=== PATIENT | female | born 1980 | race Two or more races ===

== ENCOUNTER 2018-12-15 00:29 | Inpatient (IN) | payer SELFPAY ==
[~2018-12-15] VITALS: Ht 160 cm; Wt 75.8 kg
[~2018-12-15 00:29] MED LIST: ACET-704 PO; HYDR-2761 PO; HYDR-3164 PO; NITR100C PO; NITR100C62 PO; ONDA4TAB10 SL; PHEN-444 PO; SULF1TAB24 PO; TAMS0.4C97 PO
[2018-12-15 01:16] LABS: BILIRUBIN,URINE NEGATIVE (NEG); CLARITY,URINE CLEAR; COLOR,URINE YELLOW; NITRITE,URINE NEGATIVE (NEG); PH,URINE 5.5; PROTEIN,URINE 100 mg/dL (NEG-TRACE)
[2018-12-15 01:23] LABS: BACTERIA,URINE MODERATE /HPF (0-FEW); RBC,URINE 20-40 /HPF (0-2); SQUAMOUS EPITHELIAL CELL,UR FEW /LPF; WBC,URINE TNTC /HPF (0-4)
[2018-12-15 01:24] LABS: AMORPHOUS SEDIMENT,UR PRESENT /HPF
[2018-12-15 01:29] LABS: BASO % 0 % (0-3); EOS % 0 % (0-3); HEMATOCRIT 25.2 % (36.0-47.0); HEMOGLOBIN 8.1 g/dL (12.0-15.5); LYMPH # 0.8 x10^3/uL (1.0-4.8); LYMPH % 8 % (24-48); MEAN CORPUSCULAR HEMOGLOBIN 29 pg (25-35); MEAN CORPUSCULAR HGB CONC 32 g/dL (31-37); MEAN CORPUSCULAR VOLUME 90 fL (79-100); MONO # 0.4 x10^3/uL (0.0-1.1); MONO % 4 % (0-9); NEUT # 8.8 x10^3uL (1.8-7.7); NEUT % 87 % (31-73); PLATELET COUNT 268 x10^3/uL (140-400); RED BLOOD COUNT 2.79 x10^6/uL (3.50-5.40); RED CELL DISTRIBUTION WIDTH 17.1 % (11.5-14.5); WHITE BLOOD COUNT 10.2 x10^3/uL (4.0-11.0)
[2018-12-15] MEDS ORDERED: IV NORMAL SALINE 1000ML BAG 1,000 ML IV SCH (01:30)
[2018-12-15] MEDS ORDERED: MORPHINE SULFATE 4 MG/ML VIAL. IV ONE (01:30)
[2018-12-15] MEDS ORDERED: PROCHLORPERAZINE 10 MG/2 ML VIAL. IV ONE (01:30)
[2018-12-15] MEDS ORDERED: PANTOPRAZOLE IV PUSH 40 MG VIAL. IVP ONE (01:30)
[2018-12-15 01:36] LABS: CREATININE 0.6 mg/dL (0.6-1.0); GFR 113.1; POTASSIUM 4.2 mmol/L (3.5-5.1)
[2018-12-15 01:37] LABS: PROTHROMBIN TIME PATIENT 12.5 SEC (11.7-14.0)
--- NOTE | 2018-12-15 01:37 | PHYS DOC ---
Past Medical History Past Medical History: Kidney Stone, Unknown Additional Past Medical Histor: Gastric ulcers Past Surgical History: , Other Additional Past Surgical Histo: renal stent, surgical repair of gastric ulcers Alcohol Use: None Drug Use: None Adult General Chief Complaint Chief Complaint: ABDOMINAL PAIN HPI HPI Patient is a 38 year old female who presents with upper abdominal pain going into her back. Patient is post delivery of twins 02 December 2018. Her hospital course at was complicated by vaginal bleeding and needed to have a vaginal Stacie for Reeds not left in for 24 hours. Patient also has a history of stomach ulcers. Patient has had some nausea, no vomiting, unable to describe the pain in her upper abdomen radiating into her back. Not like her stomach ulcers though. No fever. No diarrhea. Nothing seems to make the discomfort better or worse[] Review of Systems Review of Systems Constitutional: Denies fever or chills [] Eyes: Denies change in visual acuity, redness, or eye pain [] HENT: Denies nasal congestion or sore throat [] Respiratory: Denies cough or shortness of breath [] Cardiovascular: No chest pain or palpitations[] GI: See history of present illness[] : Denies dysuria or hematuria [] Musculoskeletal: Denies back pain or joint pain [] Integument: Denies rash or skin lesions [] Neurologic: Denies headache, focal weakness or sensory changes [] Endocrine: Denies polyuria or polydipsia [] All other systems were reviewed and found to be within normal limits, except as documented in this note. Current Medications Current Medications Current Medications Medications (Trade) Dose Ordered Sig/Fina Start Time Stop Time Status Last Admin Dose Admin Ceftriaxone Sodium (Rocephin) 1 gm 1X ONCE 12/15/18 03:30 12/15/18 03:31 DC 12/15/18 03:50 1 GM Info (CONTRAST GIVEN -- Rx MONITORING) 1 each PRN DAILY PRN 12/15/18 03:45 12/17/18 03:44 Iohexol (Omnipaque 300 Mg/ml) 75 ml 1X ONCE 12/15/18 02:00 12/15/18 02:01 DC 12/15/18 02:45 75 ML Iohexol (Omnipaque 350 Mg/ml) 90 ml 1X ONCE 12/15/18 03:45 12/15/18 03:46 DC 12/15/18 03:49 90 ML Morphine Sulfate (Morphine Sulfate) 4 mg 1X ONCE 12/15/18 01:30 12/15/18 01:31 DC 12/15/18 01:34 4 MG Pantoprazole Sodium (PROTONIX VIAL for IV PUSH) 40 mg 1X ONCE 12/15/18 01:30 12/15/18 01:31 DC 12/15/18 01:37 40 MG Prochlorperazine Edisylate (Compazine) 5 mg 1X ONCE 12/15/18 01:30 12/15/18 01:31 DC 12/15/18 01:32 5 MG Sodium Chloride 1,000 ml @ 1,000 mls/hr Q1H 12/15/18 01:30 12/15/18 02:29 DC 12/15/18 01:32 1,000 MLS/HR Allergies Allergies Allergies Coded Allergies Type Severity Reaction Last Updated Verified No Known Drug Allergies 01/06/16 No Physical Exam Physical Exam Constitutional: Well developed, well nourished, no acute distress, non-toxic appearance. [] HENT: Normocephalic, atraumatic, bilateral external ears normal, oropharynx moist, no oral exudates, nose normal. [] Eyes: PERRLA, EOMI, conjunctiva normal, no discharge. [] Neck: Normal range of motion, no tenderness, supple, no stridor. [] Cardiovascular:Heart rate regular rhythm, no murmur [] Lungs & Thorax: Bilateral breath sounds clear to auscultation [] Abdomen: Bowel sounds normal, soft, epigastric tenderness is present, no rebound , no guarding, no rigidity, no masses, no pulsatile masses. [] Skin: Warm, dry, no erythema, no rash. [] Back: No tenderness, mild left CVA tenderness, negative chandelier's sign[] Extremities: No tenderness, no cyanosis, no clubbing, ROM intact, no edema. [] Neurologic: Alert and oriented X 3, normal motor function, normal sensory function, no focal deficits noted. [] Psychologic: Affect normal, judgement normal, mood normal. [] Current Patient Data Vital Signs Vital Signs Date Time Temp Pulse Resp B/P (MAP) Pulse Ox O2 Delivery O2 Flow Rate FiO2 12/15/18 01:34 17 98 Room Air 12/15/18 01:00 98.1 101 160/81 (107) 98.1 Lab Values Laboratory Tests Test 12/15/18 00:35 12/15/18 01:19 Urine Collection Type Unknown Urine Color Yellow Urine Clarity Clear Urine pH 5.5 Urine Specific [place] >=1.030 Urine Protein 100 mg/dL (NEG-TRACE) Urine Glucose (UA) Negative mg/dL (NEG) Urine Ketones (Stick) Negative mg/dL (NEG) Urine Blood Large (NEG) Urine Nitrite Negative (NEG) Urine Bilirubin Negative (NEG) Urine Urobilinogen Dipstick 1.0 mg/dL (0.2 mg/dL) Urine Leukocyte Esterase Large (NEG) Urine RBC 20-40 /HPF (0-2) Urine WBC Tntc /HPF (0-4) Urine Squamous Epithelial Cells Few /LPF Urine Amorphous Sediment Present /HPF Urine Bacteria Moderate /HPF (0-FEW) Urine Mucus Mod /LPF White Blood Count 10.2 x10^3/uL (4.0-11.0) Red Blood Count 2.79 x10^6/uL (3.50-5.40) L Hemoglobin 8.1 g/dL (12.0-15.5) L Hematocrit 25.2 % (36.0-47.0) L Mean Corpuscular Volume 90 fL (79-100) Mean Corpuscular Hemoglobin 29 pg (25-35) Mean Corpuscular Hemoglobin Concent 32 g/dL (31-37) Red Cell Distribution Width 17.1 % (11.5-14.5) H Platelet Count 268 x10^3/uL (140-400) Neutrophils (%) (Auto) 87 % (31-73) H Lymphocytes (%) (Auto) 8 % (24-48) L Monocytes (%) (Auto) 4 % (0-9) Eosinophils (%) (Auto) 0 % (0-3) Basophils (%) (Auto) 0 % (0-3) Neutrophils # (Auto) 8.8 x10^3uL (1.8-7.7) H Lymphocytes # (Auto) 0.8 x10^3/uL (1.0-4.8) L Monocytes # (Auto) 0.4 x10^3/uL (0.0-1.1) Eosinophils # (Auto) 0.0 x10^3/uL (0.0-0.7) Basophils # (Auto) 0.0 x10^3/uL (0.0-0.2) Segmented Neutrophils % 87 % (35-66) H Lymphocytes % 10 % (24-48) L Monocytes % 3 % (0-10) Platelet Estimate Adequate (ADEQUATE) Polychromasia Slight Hypochromasia Slight Anisocytosis Slight Tear Drop Cells Occ Prothrombin Time 12.5 SEC (11.7-14.0) Prothrombin Time INR 1.0 (0.8-1.1) D-Dimer (Sunita) 1.64 ug/mlFEU (0.00-0.50) H Sodium Level 141 mmol/L (136-145) Potassium Level 4.2 mmol/L (3.5-5.1) Chloride Level 104 mmol/L (98-107) Carbon Dioxide Level 26 mmol/L (21-32) Anion Gap 11 (6-14) Blood Urea Nitrogen 13 mg/dL (7-20) Creatinine 0.6 mg/dL (0.6-1.0) Estimated GFR (Cockcroft-Gault) 113.1 BUN/Creatinine Ratio 22 (6-20) H Glucose Level 145 mg/dL (70-99) H Calcium Level 9.0 mg/dL (8.5-10.1) Total Bilirubin 0.2 mg/dL (0.2-1.0) Aspartate Amino Transferase (AST) 75 U/L (15-37) H Alanine Aminotransferase (ALT) 40 U/L (14-59) Alkaline Phosphatase 227 U/L (46-116) H Troponin I Quantitative < 0.017 ng/mL (0.000-0.055) Total Protein 6.9 g/dL (6.4-8.2) Albumin 2.5 g/dL (3.4-5.0) L Albumin/Globulin Ratio 0.6 (1.0-1.7) L Lipase 115 U/L (73-393) Laboratory Tests 12/15/18 01:19 Laboratory Tests 12/15/18 01:19 EKG EKG EKG shows a sinus tachycardia at 102 bpm, normal axis, normal QTC at 445 ms, normal intervals, no ST elevations, no previous EKG for comparison. Interpreted by me at 0 200[] Radiology/Procedures Radiology/Procedures CT ABDOMEN/PELVIS WITH CONTRAST. HISTORY: Recent section. Abdominal pain. TECHNIQUE: Computed tomography of the abdomen and pelvis was performed after the intravenous administration of 75 mL Omnipaque 300. COMPARISON: 02/09/2016. FINDINGS: Lung windows through the visualized portions of the bases reveal mild atelectasis. Bone windows reveal no suspicious lesions. A gallstone measures 1.7 cm. The gallbladder is not distended and there is no pericholecystic inflammation. There is no biliary dilatation. The pancreas and adrenal glands are unremarkable. The spleen is mildly enlarged at 14 cm. The liver is also mildly prominent. Multiple right renal calculi measure up to 6 x 4 mm. Right distal ureteral calculus measures 13 x 6 mm. The right ureter is moderately dilated in its midportion, but there is no hydronephrosis. There are no left renal or ureteral calculi. There are postsurgical changes of section within the lower anterior abdominal wall. A low-density region within the left rectus muscle is consistent with a subacute hematoma and measures 2.7 x 1.7 cm. A small intra-abdominal hematoma along the incision measures only 1.3 cm. The endometrial cavity is moderately distended with low-density fluid. Stool throughout the colon is consistent with constipation. The appendix is not inflamed. There is no small bowel obstruction. IMPRESSION: 1. 13 mm right distal ureteral calculus. Moderate right hydroureter without hydronephrosis. 2. Additional right renal calculi measure up to 6 mm. 3. Cholelithiasis without CT evidence of acute cholecystitis. 4. Small fluid collection within the left rectus muscle, most likely a small postprocedural hematoma. 5. The endometrial cavity is moderately distended with fluid. Correlate to exclude endometritis. 6. Findings consistent with constipation. 7. Mild hepatosplenomegaly. CT ANGIOGRAPHY OF THE CHEST WITH AND WITHOUT INTRAVENOUS CONTRAST. HISTORY: Recent surgery, elevated d-dimer, back pain. TECHNIQUE: Computed tomographic angiography of the chest was performed before and after the intravenous administration of 90 mL Omnipaque 350. 3-D maximum intensity projections were also performed. COMPARISON: Today's abdomen/pelvis exam. FINDINGS: Refer to today's abdomen/pelvis study for description of those findings. Bone windows reveal no suspicious lesions. No pulmonary emboli are identified. There is no aortic dissection or aneurysm. There are no pathologically enlarged mediastinal or axillary lymph nodes. There is no pleural or pericardial effusion. The heart is mildly enlarged. The main pulmonary artery measures 3.3 cm. Lung windows reveal mild dependent atelectasis. IMPRESSION: 1. No pulmonary embolism. 2. Enlargement of the main pulmonary artery. Correlate for pulmonary arterial hypertension. Mild cardiomegaly. 3. Refer to the abdomen/pelvis study for additional findings.[] Course & Med Decision Making Course & Med Decision Making Pertinent Labs and Imaging studies reviewed. (See chart for details) ED course and medical decision making: Patient arrived, was placed in bed, in tolerated exam well. Patient was noted to be slightly tachycardic with a heart rate hovering around 100 and given her history IV fluids were administered. Given her history concern was present for cardiomyopathy as well as pancreatitis and other intra-abdominal pathology. Additionally concern was present for pulmonary embolism so a d-dimer was ordered in an attempt to rule that out however that was elevated. Patient had been transported to and from CT for reevaluation the abdomen prior to the return of the d-dimer. Patient was transported back to CT for a CT angiogram of her chest to evaluate for pulmonary embolism. Patient was noted to have a urinary tract infection given the to numerous to count white cells in the urine with relatively few epithelial cells, so she was given IV dose of antibiotics with the plan for additional antibiotics either as an outpatient or inpatient as her care evolved in the emergency department. CT scan showed a 13 mm distal ureteral stone. With this large stone and the urinary tract infection that's noted, patient was admitted for further evaluation and treatment. Patient was doing better after the IV fluids, with her heart rate improving to the 80s.[] Dragon Disclaimer Dragon Disclaimer This electronic medical record was generated, in whole or in part, using a voice recognition dictation system. Departure Departure Impression: Primary Impression: Ureteral stone with hydronephrosis Additional Impression: Urinary tract infection Disposition: ADMITTED INPATIENT Admitting Physician: Jose Fabian Condition: IMPROVED Referrals: NO PCP (PCP) Problem Qualifiers Additional Impression: Urinary tract infection Urinary tract infection type: site unspecified Hematuria presence: with hematuria Qualified Codes: N39.0 - Urinary tract infection, site not specified ; R31.9 - Hematuria, unspecified ORTIZ COHEN DO Dec 15, 2018 01:37
[2018-12-15 01:41] LABS: D-DIMER 1.64 ug/mlFEU (0.00-0.50)
[2018-12-15 01:42] LABS: ALBUMIN 2.5 g/dL (3.4-5.0); ALBUMIN/GLOBULIN RATIO 0.6 (1.0-1.7); TOTAL BILIRUBIN 0.2 mg/dL (0.2-1.0); TOTAL PROTEIN 6.9 g/dL (6.4-8.2)
[2018-12-15 01:52] LABS: % LYMPHS 10 % (24-48); % MONOS 3 % (0-10); % SEGS 87 % (35-66); ANISOCYTOSIS SLIGHT; HYPOCHROMIA SLIGHT; PLT ESTIMATE ADEQUATE (ADEQUATE); POLYCHROMASIA SLIGHT
[2018-12-15 01:53] LABS: TEAR DROP CELLS OCC
[2018-12-15] MEDS ORDERED: IOHEXOL 300 MG/ML 100ML VIAL. IV ONE (02:00)
[2018-12-15] MEDS ORDERED: CONTRAST GIVEN. MC PRN ×2 (02:00→03:45)
[2018-12-15] MEDS ORDERED: cefTRIAXone IV Push 1 GM VIAL. IVP ONE (03:30)
[2018-12-15] MEDS ORDERED: IOHEXOL 350 MG/ML 100 ML VIAL. IV ONE (03:45)
--- NOTE | 2018-12-15 04:19 | RAD ---
EXAM: CT ABDOMEN/PELVIS WITH CONTRAST. HISTORY: Recent section. Abdominal pain. TECHNIQUE: Computed tomography of the abdomen and pelvis was performed after the intravenous administration of 75 mL Omnipaque 300. COMPARISON: 02/09/2016. FINDINGS: Lung windows through the visualized portions of the bases reveal mild atelectasis. Bone windows reveal no suspicious lesions. A gallstone measures 1.7 cm. The gallbladder is not distended and there is no pericholecystic inflammation. There is no biliary dilatation. The pancreas and adrenal glands are unremarkable. The spleen is mildly enlarged at 14 cm. The liver is also mildly prominent. Multiple right renal calculi measure up to 6 x 4 mm. Right distal ureteral calculus measures 13 x 6 mm. The right ureter is moderately dilated in its midportion, but there is no hydronephrosis. There are no left renal or ureteral calculi. There are postsurgical changes of section within the lower anterior abdominal wall. A low-density region within the left rectus muscle is consistent with a subacute hematoma and measures 2.7 x 1.7 cm. A small intra-abdominal hematoma along the incision measures only 1.3 cm. The endometrial cavity is moderately distended with low-density fluid. Stool throughout the colon is consistent with constipation. The appendix is not inflamed. There is no small bowel obstruction. IMPRESSION: 1. 13 mm right distal ureteral calculus. Moderate right hydroureter without hydronephrosis. 2. Additional right renal calculi measure up to 6 mm. 3. Cholelithiasis without CT evidence of acute cholecystitis. 4. Small fluid collection within the left rectus muscle, most likely a small postprocedural hematoma. 5. The endometrial cavity is moderately distended with fluid. Correlate to exclude endometritis. 6. Findings consistent with constipation. 7. Mild hepatosplenomegaly. *One or more of the following individualized dose reduction techniques were utilized for this examination: 1. Automated exposure control. 2. Adjustment of the mA and/or kV according to patient size. 3. Use of iterative reconstruction technique. Electronically signed by: Ernesto Quiroz MD (12/15/2018 4:15 AM) [id number]
--- NOTE | 2018-12-15 04:23 | RAD ---
EXAM: CT ANGIOGRAPHY OF THE CHEST WITH AND WITHOUT INTRAVENOUS CONTRAST. HISTORY: Recent surgery, elevated d-dimer, back pain. TECHNIQUE: Computed tomographic angiography of the chest was performed before and after the intravenous administration of 90 mL Omnipaque 350. 3-D maximum intensity projections were also performed. COMPARISON: Today's abdomen/pelvis exam. FINDINGS: Refer to today's abdomen/pelvis study for description of those findings. Bone windows reveal no suspicious lesions. No pulmonary emboli are identified. There is no aortic dissection or aneurysm. There are no pathologically enlarged mediastinal or axillary lymph nodes. There is no pleural or pericardial effusion. The heart is mildly enlarged. The main pulmonary artery measures 3.3 cm. Lung windows reveal mild dependent atelectasis. IMPRESSION: 1. No pulmonary embolism. 2. Enlargement of the main pulmonary artery. Correlate for pulmonary arterial hypertension. Mild cardiomegaly. 3. Refer to the abdomen/pelvis study for additional findings. *One or more of the following individualized dose reduction techniques were utilized for this examination: 1. Automated exposure control. 2. Adjustment of the mA and/or kV according to patient size. 3. Use of iterative reconstruction technique. Electronically signed by: Ernesto Quiroz MD (12/15/2018 4:18 AM) [id number]
[2018-12-15] MEDS ORDERED: ACETAMINOPHEN 325 MG TABLET. PO PRN (04:45)
[2018-12-15] MEDS ORDERED: ONDANSETRON PF 4 MG/2 ML VIAL. IV PRN (04:45)
[2018-12-15] MEDS ORDERED: MORPHINE SULFATE 4 MG/ML VIAL. IV PRN (04:45)
[2018-12-15 05:45] VITALS: BP 141/93
[2018-12-15 07:00] VITALS: BP 122/69
--- NOTE | 2018-12-15 07:45 | EKG ---
[facility] [address] [place] [address] Test Date: 2018-12-15 Test Time: 01:44:44 Pat Name: BARBER CHAVEZ Department: Room: 572 1 Gender: F [employer] Teacher: : 1980 Requested By: ORTIZ COHEN Order Number: [id number] Reading MD: Nash Bridges Measurements Intervals [place] Rate: 102 P: 34 WI: 138 QRS: 26 QRSD: 82 T: 35 QT: 338 QTc: 444 Interpretive Statements SINUS TACHYCARDIA Electronically Signed On 12-16-2018 10:07:27 LOGISTICS TECH by Nash Bridges
[2018-12-15] MEDS ORDERED: IBUP-1027 PO (07:55)
[2018-12-15] MEDS ORDERED: OXYC1TAB15 PO (07:55)
[2018-12-15] MEDS ORDERED: KETOROLAC 30 MG/ML VIAL. IV PRN (08:00)
--- NOTE | 2018-12-15 10:37 | PDOC2 ---
SYED DAVID APRN 12/15/18 1037: UROLOGY CONSULT Date of Consult Date of Consult DATE: 12/15/18 TIME: 10:26 Identification/Chief Complaint Chief Complaint Distal 13 mm stone Source Source: Caregiver, Chart review, Patient History of Present Illness Reason for Visit: This 38 year old female presented to the ER early this am for severe back pain and so a CT scan was done. It was discovered that she has a 13 mm stone. This is the second time she has had kidney stones. The last time was 3-[address] Matthews worked on her then. She cannot remember exactly what he did. Currently, her pain is well controlled with medication and she is actually feeling quite well this am with 0/10 pain. She also denies fevers, dysuria, and hematuria. She would like to go home if possible since she recently gave to twins on 12/02. Past Medical History Renal/: Other (Kidney stones 4 years ago. ) Social History ALCOHOL: none Drugs: None Lives: with Family Current Problem List Problems: (1) Ureteral stone with hydronephrosis Current Medications Current Medications Current Medications Acetaminophen (Tylenol) 650 mg PRN Q4HRS PRN PO FEVER; Start 12/15/18 at 04:45; Stop 12/16/18 at 04:44 Ceftriaxone Sodium (Rocephin) 1 gm 1X ONCE IVP Last administered on 12/15/18at 03:50; Start 12/15/18 at 03:30; Stop 12/15/18 at 03:31; Status DC Info (CONTRAST GIVEN -- Rx MONITORING) 1 each PRN DAILY PRN MC SEE COMMENTS; Start 12/15/18 at 02:00; Stop 12/17/18 at 01:59 Info (CONTRAST GIVEN -- Rx MONITORING) 1 each PRN DAILY PRN MC SEE COMMENTS; Start 12/15/18 at 03:45; Stop 12/17/18 at 03:44 Iohexol (Omnipaque 300 Mg/ml) 75 ml 1X ONCE IV Last administered on 12/15/18at 02:45; Start 12/15/18 at 02:00; Stop 12/15/18 at 02:01; Status DC Iohexol (Omnipaque 350 Mg/ml) 90 ml 1X ONCE IV Last administered on 12/15/18at 03:49; Start 12/15/18 at 03:45; Stop 12/15/18 at 03:46; Status DC Ketorolac Tromethamine (Toradol 30mg Vial) 30 mg PRN Q6HRS PRN IV MODERATE PAIN ; Start 12/15/18 at 08:00; Stop 12/20/18 at 07:59 Morphine Sulfate (Morphine Sulfate) 4 mg 1X ONCE IV Last administered on at 01:34; Start 12/15/18 at 01:30; Stop 12/15/18 at 01:31; Status DC Morphine Sulfate (Morphine Sulfate) 4 mg PRN Q2HR PRN IV SEVERE PAIN; Start 12/15/18 at 04:45; Stop 12/16/18 at 04:44 Ondansetron HCl (Zofran) 4 mg PRN Q8HRS PRN IV NAUSEA/VOMITING 1ST CHOICE; Start 12/15/18 at 04:45; Stop 12/16/18 at 04:44 Pantoprazole Sodium (PROTONIX VIAL for IV PUSH) 40 mg 1X ONCE IVP Last administered on 12/15/18at 01:37; Start 12/15/18 at 01:30; Stop 12/15/18 at 01:31; Status DC Prochlorperazine Edisylate (Compazine) 5 mg 1X ONCE IV Last administered on 12/15/18at 01:32; Start 12/15/18 at 01:30; Stop 12/15/18 at 01:31; Status DC Sodium Chloride 1,000 ml @ 1,000 mls/hr Q1H IV Last administered on 12/15/18at 01:32; Start 12/15/18 at 01:30; Stop 12/15/18 at 02:29; Status DC Allergies Allergies: Coded Allergies: No Known Drug Allergies (Unverified , 01/06/16) ROS Review Of Systems: CONSTITUTIONAL: No fever or chills EYES: No recent changes SKIN: No rash or itching CARDIOVASCULAR: No chest pain, syncope, palpitations, or edema RESPIRATORY: No SOB or cough GASTROINTESTINAL: No nausea, vomiting or abdominal pain NEUROLOGICAL: No headaches or weakness ENDOCRINE: No cold or heat intolerance GENITOURINARY: No urgency or frequency of urination MUSCULOSKELETAL: No back pain or joint pain LYMPHATICS: No enlarged lymph nodes PSYCHIATRIC: No anxiety or depression Physical Exam Physical Exam: General: Pleasant, no acute distress, well groomed Eyes: conjunctiva anicteric, eyes full range of motion ENT: moist oral mucosa, normal dentition Neck: Trachea midline, no masses Respiratory: unlabored breathing, not using accessory muscles, no crackles or wheezes Cardiovascular: Regular rate and rhythm, no peripheral edema Abdomen: nontender, nondistended, no hepatosplenomegaly, no masses Skin: no rashes or skin lesions on visualized skin Psych: normal mood, affect. Alert and oriented x 3. Vitals VITALS Vital Signs Date Time Temp Pulse Resp B/P (MAP) Pulse Ox O2 Delivery O2 Flow Rate FiO2 12/15/18 07:00 98.3 75 16 122/69 (86) 98 Room Air 98.3 Labs Labs Laboratory Tests Test 12/15/18 00:35 12/15/18 01:19 Urine Collection Type Unknown Urine Color Yellow Urine Clarity Clear Urine pH 5.5 Urine Specific [place] >=1.030 Urine Protein 100 mg/dL (NEG-TRACE) Urine Glucose (UA) Negative mg/dL (NEG) Urine Ketones (Stick) Negative mg/dL (NEG) Urine Blood Large (NEG) Urine Nitrite Negative (NEG) Urine Bilirubin Negative (NEG) Urine Urobilinogen Dipstick 1.0 mg/dL (0.2 mg/dL) Urine Leukocyte Esterase Large (NEG) Urine RBC 20-40 /HPF (0-2) Urine WBC Tntc /HPF (0-4) Urine Squamous Epithelial Cells Few /LPF Urine Amorphous Sediment Present /HPF Urine Bacteria Moderate /HPF (0-FEW) Urine Mucus Mod /LPF White Blood Count 10.2 x10^3/uL (4.0-11.0) Red Blood Count 2.79 x10^6/uL (3.50-5.40) Hemoglobin 8.1 g/dL (12.0-15.5) Hematocrit 25.2 % (36.0-47.0) Mean Corpuscular Volume 90 fL (79-100) Mean Corpuscular Hemoglobin 29 pg (25-35) Mean Corpuscular Hemoglobin Concent 32 g/dL (31-37) Red Cell Distribution Width 17.1 % (11.5-14.5) Platelet Count 268 x10^3/uL (140-400) Neutrophils (%) (Auto) 87 % (31-73) Lymphocytes (%) (Auto) 8 % (24-48) Monocytes (%) (Auto) 4 % (0-9) Eosinophils (%) (Auto) 0 % (0-3) Basophils (%) (Auto) 0 % (0-3) Neutrophils # (Auto) 8.8 x10^3uL (1.8-7.7) Lymphocytes # (Auto) 0.8 x10^3/uL (1.0-4.8) Monocytes # (Auto) 0.4 x10^3/uL (0.0-1.1) Eosinophils # (Auto) 0.0 x10^3/uL (0.0-0.7) Basophils # (Auto) 0.0 x10^3/uL (0.0-0.2) Segmented Neutrophils % 87 % (35-66) Lymphocytes % 10 % (24-48) Monocytes % 3 % (0-10) Platelet Estimate Adequate (ADEQUATE) Polychromasia Slight Hypochromasia Slight Anisocytosis Slight Tear Drop Cells Occ Prothrombin Time 12.5 SEC (11.7-14.0) Prothromb Time International Ratio 1.0 (0.8-1.1) D-Dimer (Sunita) 1.64 ug/mlFEU (0.00-0.50) Sodium Level 141 mmol/L (136-145) Potassium Level 4.2 mmol/L (3.5-5.1) Chloride Level 104 mmol/L (98-107) Carbon Dioxide Level 26 mmol/L (21-32) Anion Gap 11 (6-14) Blood Urea Nitrogen 13 mg/dL (7-20) Creatinine 0.6 mg/dL (0.6-1.0) Estimated GFR (Cockcroft-Gault) 113.1 BUN/Creatinine Ratio 22 (6-20) Glucose Level 145 mg/dL (70-99) Calcium Level 9.0 mg/dL (8.5-10.1) Total Bilirubin 0.2 mg/dL (0.2-1.0) Aspartate Amino Transf (AST/SGOT) 75 U/L (15-37) Alanine Aminotransferase (ALT/SGPT) 40 U/L (14-59) Alkaline Phosphatase 227 U/L (46-116) Troponin I Quantitative < 0.017 ng/mL (0.000-0.055) Total Protein 6.9 g/dL (6.4-8.2) Albumin 2.5 g/dL (3.4-5.0) Albumin/Globulin Ratio 0.6 (1.0-1.7) Lipase 115 U/L (73-393) Laboratory Tests Test 12/15/18 00:35 12/15/18 01:19 Urine Collection Type Unknown Urine Color Yellow Urine Clarity Clear Urine pH 5.5 Urine Specific [place] >=1.030 Urine Protein 100 mg/dL (NEG-TRACE) Urine Glucose (UA) Negative mg/dL (NEG) Urine Ketones (Stick) Negative mg/dL (NEG) Urine Blood Large (NEG) Urine Nitrite Negative (NEG) Urine Bilirubin Negative (NEG) Urine Urobilinogen Dipstick 1.0 mg/dL (0.2 mg/dL) Urine Leukocyte Esterase Large (NEG) Urine RBC 20-40 /HPF (0-2) Urine WBC Tntc /HPF (0-4) Urine Squamous Epithelial Cells Few /LPF Urine Amorphous Sediment Present /HPF Urine Bacteria Moderate /HPF (0-FEW) Urine Mucus Mod /LPF White Blood Count 10.2 x10^3/uL (4.0-11.0) Red Blood Count 2.79 x10^6/uL (3.50-5.40) Hemoglobin 8.1 g/dL (12.0-15.5) Hematocrit 25.2 % (36.0-47.0) Mean Corpuscular Volume 90 fL (79-100) Mean Corpuscular Hemoglobin 29 pg (25-35) Mean Corpuscular Hemoglobin Concent 32 g/dL (31-37) Red Cell Distribution Width 17.1 % (11.5-14.5) Platelet Count 268 x10^3/uL (140-400) Neutrophils (%) (Auto) 87 % (31-73) Lymphocytes (%) (Auto) 8 % (24-48) Monocytes (%) (Auto) 4 % (0-9) Eosinophils (%) (Auto) 0 % (0-3) Basophils (%) (Auto) 0 % (0-3) Neutrophils # (Auto) 8.8 x10^3uL (1.8-7.7) Lymphocytes # (Auto) 0.8 x10^3/uL (1.0-4.8) Monocytes # (Auto) 0.4 x10^3/uL (0.0-1.1) Eosinophils # (Auto) 0.0 x10^3/uL (0.0-0.7) Basophils # (Auto) 0.0 x10^3/uL (0.0-0.2) Segmented Neutrophils % 87 % (35-66) Lymphocytes % 10 % (24-48) Monocytes % 3 % (0-10) Platelet Estimate Adequate (ADEQUATE) Polychromasia Slight Hypochromasia Slight Anisocytosis Slight Tear Drop Cells Occ Prothrombin Time 12.5 SEC (11.7-14.0) Prothromb Time International Ratio 1.0 (0.8-1.1) D-Dimer (Sunita) 1.64 ug/mlFEU (0.00-0.50) Sodium Level 141 mmol/L (136-145) Potassium Level 4.2 mmol/L (3.5-5.1) Chloride Level 104 mmol/L (98-107) Carbon Dioxide Level 26 mmol/L (21-32) Anion Gap 11 (6-14) Blood Urea Nitrogen 13 mg/dL (7-20) Creatinine 0.6 mg/dL (0.6-1.0) Estimated GFR (Cockcroft-Gault) 113.1 BUN/Creatinine Ratio 22 (6-20) Glucose Level 145 mg/dL (70-99) Calcium Level 9.0 mg/dL (8.5-10.1) Total Bilirubin 0.2 mg/dL (0.2-1.0) Aspartate Amino Transf (AST/SGOT) 75 U/L (15-37) Alanine Aminotransferase (ALT/SGPT) 40 U/L (14-59) Alkaline Phosphatase 227 U/L (46-116) Troponin I Quantitative < 0.017 ng/mL (0.000-0.055) Total Protein 6.9 g/dL (6.4-8.2) Albumin 2.5 g/dL (3.4-5.0) Albumin/Globulin Ratio 0.6 (1.0-1.7) Lipase 115 U/L (73-393) Images Images IMPRESSION: 1. 13 mm right distal ureteral calculus. Moderate right hydroureter without hydronephrosis. 2. Additional right renal calculi measure up to 6 mm. 3. Cholelithiasis without CT evidence of acute cholecystitis. 4. Small fluid collection within the left rectus muscle, most likely a small postprocedural hematoma. 5. The endometrial cavity is moderately distended with fluid. Correlate to exclude endometritis. 6. Findings consistent with constipation. 7. Mild hepatosplenomegaly. Assessment/Plan Assessment/Plan Pt may eat today, NPO at midnight. Continue pain control. Keep to morphine if possible for pain control since she is breast feeding. Toradol is ordered for severe pain if needed, but if she does take this she will have to pump and dump breast milk for 48 hours. I did careers counsellor the patient on this and discuss this with nursing staff. We have breast pumps available for patient in house if needed. KUB today to check stone. Pt cannot take Flomax since she is breast feeding. Repeat Rocephin at 0300 tomorrow, await urine culture results. So far patient afebrile. WBC 10.2, [employer] SAL[employer] 0.6, BUN 13. Will have surgeon review imaging. JAIMIE GOLDEN MD 12/15/18 1111: UROLOGY CONSULT Assessment/Plan Assessment/Plan agree w h/p. bacteruria. right distal stone. recommend uti treatment first. Stone management after UTI is treated. Mildly if any symptomatic from this (upper abd pain w radiation to back is more suggestive of pancreatitis), cr wnl, stone likely chronic given no impressive hydro, titi nephric stranding nor calyceal rupture. Flomax is class B med in /breast feeding but not likely a difference maker on this presentation. SYED DAVID APRN Dec 15, 2018 10:37 JAIMIE GOLDEN MD Dec 15, 2018 11:11
[2018-12-15 11:00] VITALS: BP 145/87
--- NOTE | 2018-12-15 11:14 | RAD ---
Abdominal radiograph 12/15/2018 INDICATION: Stone evaluation. COMPARISON: CT abdomen/pelvis December 15, 2018 TECHNIQUE: Single supine view of abdomen is provided. FINDINGS: There is a stable 7 mm calculus projecting over the mid to superior pole the right kidney. There is a 13 mm coarse calcification the right hemipelvis which is in similar position. There are no dilated loops of small large bowel. Supine technique limits variation for free intraperitoneal air. Increased density of the urinary bladder may be secondary to bladder wall thickening. No suspicious osseous amount is identified. IMPRESSION: Right upper pole renal calculus is in similar position measuring 7 mm. 13 mm coarse calcification the right hemipelvis is in similar position. Electronically signed by: China Pratt MD (12/15/2018 11:09 AM) [facility]
[2018-12-15] MEDS ORDERED: HYDROcodone/APAP 5/325MG 1 TAB TABLET PO PRN (11:30)
--- NOTE | 2018-12-15 12:46 | NUR ---
Discharge Note: [facility] [address] [place] [address] Discharge instructions and discharge home medications reviewed with Patient and a copy given. All questions have been answered and understanding verbalized. The following instructions and handouts were given: discharge instructions (diet, activity, etc.), medications, 2 prescriptions (Lortab, Augmentin), follow-up instructions, patient education. Discontinued lines and drains: peripheral IV discontinued without complciations and with catheter tip intact. Patient discharged to home with self care via private vehicle.
--- NOTE | 2018-12-15 12:57 | SSS ---
ADMIT DATE: 12/15/2018 CHIEF COMPLAINT: Flank pain. HISTORY OF PRESENT ILLNESS: The patient is a pleasant 38-year-old female who had a previous history of kidney stone 5 years ago. Once again, she presents with flank pain. She has a 30-mm stone on imaging. Rates her pain at a 7/10 yesterday, but this morning is back down to 0/10. We did consult Urology. They have seen the patient. They would like to treat her UTI and then eventually treat her stone. The patient would like to go home. She just gave to a set of twins a week ago. I am going to let the patient get home and have her see Urology next week. PAST MEDICAL HISTORY: Previous kidney stones, recent . ALLERGIES: None. FAMILY HISTORY: Kidney stones. SOCIAL HISTORY: She does not drink, smoke or take drugs. MEDICATIONS: Reviewed. She is on Percocet and ibuprofen. REVIEW OF SYSTEMS: GENERAL: No history of weight change, weakness or fevers. SKIN: No bruising, hair changes or rashes. EYES: No blurred, double or loss of vision. NOSE AND THROAT: No history of nosebleeds, hoarseness or sore throat. HEART: No history of palpitations, chest pain or shortness of breath on exertion. LUNGS: Denies cough, hemoptysis, wheezing or shortness of breath. GASTROINTESTINAL: Denies changes in appetite, nausea, vomiting, diarrhea or constipation. GENITOURINARY: No history of frequency, urgency, hesitancy or nocturia. NEUROLOGIC: Denies history of numbness, tingling, tremor or weakness. PSYCHIATRIC: No history of panic, anxiety or depression. ENDOCRINE: No history of heat or cold intolerance, polyuria or polydipsia. EXTREMITIES: Denies muscle weakness, joint pain, pain on walking or stiffness. PHYSICAL EXAMINATION: VITAL SIGNS: Temperature afebrile, pulse 98, respirations 18, blood pressure 140/90. GENERAL: She is alert, cooperative, requesting discharge. HEART: Normal S1, S2. LUNGS: Clear. ABDOMEN: Soft, nontender. There is an incision that is healing well. ENDOCRINE: No thyromegaly. LYMPHATICS: No cervical nodes. HEMATOPOIETIC: No bruising. PSYCHIATRIC: She is stable. LABORATORY DATA: Hemoglobin is 8.1. Electrolytes are normal. Urinalysis shows too numerous to count white cells and large amount of leukocyte esterase as well as blood. ASSESSMENT AND PLAN: Renal stones and UTI. The patient has been admitted. We are going to go and let her go home on a script for Augmentin 500 mg p.o. b.i.d. for 5 more days. I also gave her a script for some p.r.n. Lortab. DISPOSITION: Home. ACTIVITY: As tolerated. DIET: Low sodium. MEDICATIONS: Please see MRAD. TOTAL TIME: 31 minutes. SANDRA BOATENG DO DR: TITA/hanny JOB#: [id number] / [id number]
[2018-12-16] MEDS ORDERED: cefTRIAXone IV Push 1 GM VIAL. IVP SCH (04:00)
[2018-12-16] MEDS ORDERED: TAMSULOSIN 0.4 MG CAP.ER.24H. PO SCH (09:00)
--- NOTE | 2018-12-18 11:16 | DS ---
DATE OF DISCHARGE: 12/15/2018 ADMISSION DIAGNOSIS: Ureteral stone. DISCHARGE DIAGNOSIS: Resolving ureteral stone. HOSPITAL COURSE: The patient is a pleasant 38-year-old female presented with a 13 mm distal ureteral stone. She was admitted. We gave her IV fluids and empiric antibiotics. Her urine did show mild UTI. We consulted Urology. The plan is to eventually consider going after the stone, but they want to let the infection clear. We are discharging with p.o. antibiotics and she will follow up with Urology in a week or so. DISPOSITION: Home. ACTIVITY: As tolerated. DIET: Low sodium. MEDICATIONS: Please see the MRAD. TOTAL TIME: 31 minutes. SANDRA BOATENG DO DR: TITA/hanny JOB#: [id number] / [id number]
[2018-12-20] MEDS ORDERED: HYDR-2761 PO (12:28)
== END 2018-12-15 12:40 | disposition home or self-care (01) | DRG 690 ==
LOC: ER 00:29 → 5 SOUTH 04:58
PROVIDERS: ADMIT Internal Medicine; ATTEND Internal Medicine
DX: N13.6 Pyonephrosis (principal); K59.00 Constipation, unspecified; Z87.11 Personal history of peptic ulcer disease; Z87.442 Personal history of urinary calculi; Z98.891 History of uterine scar from previous surgery
CPT/HCPCS: 36415; 71275; 74018; 74177; 80053; 81001; 81025; 83690; 84484; 85007; 85025; 85379; 85610; 87086; 93005; 96361; 96374; 96375; C9113; J0696; J0780; J2270; J7030; Q9967; 99285-25; G0378

== ENCOUNTER 2018-12-23 10:26 | Day surgery (SDC) | payer SELFPAY ==
[~2018-12-23] VITALS: Ht 160 cm; Wt 73.5 kg
[~2018-12-23 10:26] MED LIST changes: -ACET-704 PO; -HYDR-3164 PO; +HYDROmorphone 2 MG/ML VIAL IV PRN; +IBUP-1027 PO; +IV RINGERS,LACTATED 1000ML 1,000 ML IV SCH; +LIDOCAINE 1% PF 2 ML VIAL. ID PRN; +MORPHINE SULFATE 2 MG/ML VIAL. IV PRN; -NITR100C PO; -NITR100C62 PO; -ONDA4TAB10 SL; +ONDANSETRON PF 4 MG/2 ML VIAL. IV PRN; +OXYC1TAB15 PO; +PROCHLORPERAZINE 10 MG/2 ML VIAL. IV PRN; -TAMS0.4C97 PO; +fentaNYL PF VIAL 100 MCG/2 ML VIAL IV PRN
[2018-12-23] MEDS ORDERED: LIDOCAINE 2% TOPICAL JELLY 30GM TUBE. TP ONE (11:06)
[2018-12-23] MEDS ORDERED: IOHEXOL 300 MG/ML 100ML VIAL. ONE (11:07)
[2018-12-23] MEDS ORDERED: LIDOCAINE 2% JELLY 6ML IN APPLICATOR. ONE (11:53)
[2018-12-23 11:56] LABS: U PREG PATIENT NEGATIVE (NEG)
[2018-12-23] MEDS ORDERED: MIDAZOLAM HCL/PF 2 MG/2 ML VIAL. ONE (12:17)
[2018-12-23] MEDS ORDERED: SEVOFLURANE 31 TO 60 MINUTES. IH ONE (12:17)
[2018-12-23] MEDS ORDERED: DEXAMETHASONE SOD PHOS 20 MG/5 ML VIAL. ONE (12:17)
[2018-12-23] MEDS ORDERED: SEVOFLURANE 16 TO 30 MINUTES. IH ONE (12:17)
[2018-12-23] MEDS ORDERED: ONDANSETRON PF 4 MG/2 ML VIAL. ONE (12:17)
[2018-12-23] MEDS ORDERED: KETOROLAC 30 MG/ML INJ FOR OR. INJ ONE (12:17)
[2018-12-23] MEDS ORDERED: LIDOCAINE 2% PF Vial for OR 5 ML VIAL. ONE (12:17)
[2018-12-23] MEDS ORDERED: PROPOFOL 20 ML IV ONE (12:17)
[2018-12-23] MEDS ORDERED: PHENYLEPHRINE in 0.9% NACL PF 1 MG/10 ML SYRINGE. IV ONE (13:17)
[2018-12-23] MEDS ORDERED: FUROSEMIDE 20 MG/2 ML VIAL. ONE (13:52)
--- NOTE | 2018-12-23 14:22 | PDOC4 ---
OPERATIVE NOTE Date: Date: Dec 23, 2018 Pre-Op Diagnosis: Right Ureteral Stone Post-Op Diagnosis: same Procedure Performed: Cysto, Rt Ureteroscopy, Holmium laser stone and removal; placement of 6 x 26 Polaris stent on string Surgeon: Ivonne Anesthesia Type: Gen Blood Loss: min Specimans Obtained: stone fragments Findings: lg distal R uret calc Complications: none Operative Note: Gen Anes; pt placeed in lithotomy pos'n; prepped and draped in usual fashion. Pt given IV Abx. Cysto performed and bladder exam urem. Rt uret orifice cannulated with a Sensor wire which was passed to the kidney under fluoro guidance. The 6.5 Fr uret'scope then used to examine the ureter and lg calc id'd approx 4 cm fro UO> The holmium laser was used to fragment the stone into powder. The 3-pronged grasper was used to remove fragments from the ureter. The wire was then back-loaded thru the cystoscope and a 6. x26 Polaris stent with string was placed under fluoro. The wire was removed and the stent coiled in good pos'n. Stone fragments were then removed from the bladder. The bladder was emptied and scope removed. The dangle string was taped to the patient's lower abdomen. She was then awakened and transferred to in stable cond'n. No comp. Disp: HOme with Rx Lortab; instructed to call office for f/u for stent removal. ZULEYMA CARR MD Dec 23, 2018 14:22
[2018-12-23] MEDS ORDERED: POTASSIUM CL 20MEQ-0.45% NACL 1,000 ML IV SCH (14:23)
[2018-12-23] MEDS ORDERED: 0.9 % SODIUM CHLORIDE 10 ML DISP.SYRIN. IV PRN (14:30)
[2018-12-23] MEDS ORDERED: PROCHLORPERAZINE 10 MG/2 ML VIAL. IV PRN (14:30)
[2018-12-23] MEDS ORDERED: HYDROcodone/APAP 5/325MG 1 TAB TABLET PO PRN (14:30)
[2018-12-23] MEDS ORDERED: NALOXONE 0.4 MG/ML VIAL. IV PRN (14:30)
[2018-12-23] MEDS ORDERED: ONDANSETRON PF 4 MG/2 ML VIAL. IV PRN (14:30)
--- NOTE | 2018-12-23 14:31 | DISCH ---
DISCHARGE INSTRUCTIONS Condition on Discharge Condition on Discharge: Stable Activity After Discharge Activity Instructions for Disc: Activity as tolerated, Avoid exertion Bathing Instructions: Shower-keep dressing dry Lifting Instructions after Dis: No heavy lifting Exercise Instruction after Dis: Progress as tolerated Driving Instructions after Dis: Do not drive, Do not drive today Weight Bearing Status after Di: As tolerated Diet after Discharge Diet after Discharge: Regular Additional Diet Restrictions: Drink 8 12oz glasses of water per day with stent Diet Texture: Regular Liquid Texture: Thin Liquid Swallowing Supervision: None needed Wound Incision Care Wound/Incision Care: No wound care needed Contacting the DR. after DC Call your doctor for: Fever greater than 100 Treatment/Equipment after DC Adaptive Equipment Issued: None ZULEYMA CARR MD Dec 23, 2018 14:31
[2018-12-23] MEDS: fentaNYL PF VIAL 100 MCG/2 ML VIAL IV PRN ×2 (14:32→15:17)
[2018-12-23 15:45] VITALS: BP 134/76
--- NOTE | 2018-12-24 09:10 | PATHOLOGY ---
[facility] Accession Number: [id number] . 01 Material submitted: . RIGHT URETERAL STONES . 01 Clinical history: . Pyelonephritis . 02 Diagnosis: Right ureteral stones: - Consistent with calculi. - The specimen is forwarded to an outside laboratory for further processing, with results to follow in an addendum. [facility]/12/24/2018 . 02 Electronically signed: . Duc Dan MD, Pathologist NPI- [id number] . 01 Gross description: . Received fresh labeled "Charlette Neil, right ureteral stones," are granular, light scales calculi ranging from 0.1 to 0.3 cm in maximum dimension. The specimen is forwarded to an outside laboratory for further processing. ([facility]; 12/24/2018) XDC/XDC . 02 Pathologist provided ICD-10: N20.1 . 02 CPT . 117216 Specimen Comment: A courtesy copy of this report has been sent to Specimen Comment: [phone]. Specimen Comment: Report sent to Performed at: 01 [facility] [address] [id number] MD Dave Pierce MD Phone: [phone] Performed at: 02 [facility] [address] [place], [place] [id number] MD Duc Dan MD Phone: [phone]
== END 2018-12-23 15:50 | disposition home or self-care (01) ==
LOC: SURG 10:26
PROVIDERS: ATTEND Urology
DX: O90.89 Other complications of the puerperium, not elsewhere classified (principal); N20.1 Calculus of ureter; Z98.890 Other specified postprocedural states
CPT/HCPCS: 52356; 76000; 81025; A7015; C1769; C2617; J0696; J0780; J1100; J1885; J1940; J2001; J2250; J2370; J2405; J2704; J3010; J7120; Q9967

== ENCOUNTER 2019-03-10 03:16 | Emergency (ER) | payer SELFPAY ==
[~2019-03-10] VITALS: Ht 160 cm; Wt 73.5 kg
[~2019-03-10 03:16] MED LIST changes: +ACET-704 PO; +HYDR-3164 PO; -HYDROmorphone 2 MG/ML VIAL IV PRN; -IV RINGERS,LACTATED 1000ML 1,000 ML IV SCH; -LIDOCAINE 1% PF 2 ML VIAL. ID PRN; -MORPHINE SULFATE 2 MG/ML VIAL. IV PRN; +NITR100C PO; +NITR100C62 PO; +ONDA4TAB10 SL; -ONDANSETRON PF 4 MG/2 ML VIAL. IV PRN; -PROCHLORPERAZINE 10 MG/2 ML VIAL. IV PRN; +TAMS0.4C97 PO; -fentaNYL PF VIAL 100 MCG/2 ML VIAL IV PRN
[2019-03-10 03:27] VITALS: BP 159/90
[2019-03-10 03:29] LABS: BILIRUBIN,URINE NEGATIVE (NEG); CLARITY,URINE CLEAR; COLOR,URINE YELLOW; NITRITE,URINE NEGATIVE (NEG); PH,URINE 5.5; PROTEIN,URINE 100 mg/dL (NEG-TRACE); UROBILINOGEN,URINE 0.2 mg/dL (0.2 mg/dL)
[2019-03-10 03:35] LABS: BACTERIA,URINE FEW /HPF (0-FEW); SQUAMOUS EPITHELIAL CELL,UR MOD /LPF
[2019-03-10 03:54] LABS: BASO % 0 % (0-3); EOS % 0 % (0-3); HEMATOCRIT 35.4 % (36.0-47.0); HEMOGLOBIN 11.8 g/dL (12.0-15.5); LYMPH # 1.8 x10^3/uL (1.0-4.8); LYMPH % 22 % (24-48); MEAN CORPUSCULAR HEMOGLOBIN 28 pg (25-35); MEAN CORPUSCULAR HGB CONC 33 g/dL (31-37); MEAN CORPUSCULAR VOLUME 85 fL (79-100); MONO # 0.6 x10^3/uL (0.0-1.1); MONO % 7 % (0-9); NEUT # 5.7 x10^3uL (1.8-7.7); NEUT % 70 % (31-73); PLATELET COUNT 258 x10^3/uL (140-400); RED BLOOD COUNT 4.19 x10^6/uL (3.50-5.40); WHITE BLOOD COUNT 8.1 x10^3/uL (4.0-11.0)
--- NOTE | 2019-03-10 03:54 | PHYS DOC ---
Past Medical History Past Medical History: Kidney Stone, Unknown Additional Past Medical Histor: Gastric ulcers Past Surgical History: , Other Additional Past Surgical Histo: renal stent, surgical repair of gastric ulcers Alcohol Use: None Drug Use: None Adult General Chief Complaint Chief Complaint: FLANK PAIN HPI HPI Patient is a 38 year old female who presents with right-sided flank pain. Patient states pain started a few hours ago. She describes the pain as a stabbing sensation that radiates down into her groin. Nothing makes her pain better or worse. She denies any blood in her urine. Patient is reporting nausea. Denies any fever or chills Review of Systems Review of Systems Constitutional: Denies fever or chills Eyes: Denies redness or eye pain HENT: Denies nasal congestion or sore throat Respiratory: Denies cough or shortness of breath Cardiovascular: Denies chest pain or palpitations GI: Reports nausea and flank pain. Denies vomiting, bloody stools or diarrhea : Denies dysuria or hematuria Musculoskeletal: Reports right-sided back pain. Denies joint pain Integument: Denies rash or skin lesions Neurologic: Denies headache or focal weakness Complete systems were reviewed and found to be within normal limits, except as documented in this note. Current Medications Current Medications Current Medications Medications (Trade) Dose Ordered Sig/Fina Start Time Stop Time Status Last Admin Dose Admin Ketorolac Tromethamine (Toradol 15mg Vial) 15 mg 1X ONCE 03/10/19 04:00 03/10/19 04:01 DC 03/10/19 04:01 15 MG Metoclopramide HCl (Reglan Vial) 10 mg 1X ONCE 03/10/19 04:00 03/10/19 04:01 DC 03/10/19 04:02 10 MG Sodium Chloride 1,000 ml @ 1,000 mls/hr 1X ONCE 03/10/19 04:00 03/10/19 04:59 DC 03/10/19 04:02 1,000 MLS/HR Allergies Allergies Allergies Coded Allergies Type Severity Reaction Last Updated Verified No Known Drug Allergies 12/23/18 No Physical Exam Physical Exam Constitutional: No acute distress, non-toxic appearance. HENT: Normocephalic, atraumatic Eyes: EOMI, no discharge. Neck: Normal range of motion,supple. Cardiovascular:Heart rate regular rhythm, no murmur Lungs & Thorax: Bilateral breath sounds clear to auscultation Abdomen: Bowel sounds normal, soft, right sided flank tenderness, no rebound, rigidity, or guarding. Skin: Warm, dry, no erythema, no rash. Back: No tenderness, no CVA tenderness. Extremities: No cyanosis, no clubbing, no edema. Neurologic: Alert and oriented X 3, no focal deficits noted. Psychologic: Affect normal, mood normal. Current Patient Data Vital Signs Vital Signs Date Time Temp Pulse Resp B/P (MAP) Pulse Ox O2 Delivery O2 Flow Rate FiO2 03/10/19 03:27 97.7 108 18 159/90 (113) 99 Room Air 97.7 Lab Values Laboratory Tests Test 03/10/19 03:18 03/10/19 03:40 Urine Collection Type Unknown Urine Color Yellow Urine Clarity Clear Urine pH 5.5 Urine Specific [place] 1.020 Urine Protein 100 mg/dL (NEG-TRACE) Urine Glucose (UA) Negative mg/dL (NEG) Urine Ketones (Stick) Trace mg/dL (NEG) Urine Blood Large (NEG) Urine Nitrite Negative (NEG) Urine Bilirubin Negative (NEG) Urine Urobilinogen Dipstick 0.2 mg/dL (0.2 mg/dL) Urine Leukocyte Esterase Small (NEG) Urine RBC 11-20 /HPF (0-2) Urine WBC 5-10 /HPF (0-4) Urine Squamous Epithelial Cells Mod /LPF Urine Bacteria Few /HPF (0-FEW) Urine Mucus Slight /LPF White Blood Count 8.1 x10^3/uL (4.0-11.0) Red Blood Count 4.19 x10^6/uL (3.50-5.40) Hemoglobin 11.8 g/dL (12.0-15.5) L Hematocrit 35.4 % (36.0-47.0) L Mean Corpuscular Volume 85 fL (79-100) Mean Corpuscular Hemoglobin 28 pg (25-35) Mean Corpuscular Hemoglobin Concent 33 g/dL (31-37) Red Cell Distribution Width 14.0 % (11.5-14.5) Platelet Count 258 x10^3/uL (140-400) Neutrophils (%) (Auto) 70 % (31-73) Lymphocytes (%) (Auto) 22 % (24-48) L Monocytes (%) (Auto) 7 % (0-9) Eosinophils (%) (Auto) 0 % (0-3) Basophils (%) (Auto) 0 % (0-3) Neutrophils # (Auto) 5.7 x10^3uL (1.8-7.7) Lymphocytes # (Auto) 1.8 x10^3/uL (1.0-4.8) Monocytes # (Auto) 0.6 x10^3/uL (0.0-1.1) Eosinophils # (Auto) 0.0 x10^3/uL (0.0-0.7) Basophils # (Auto) 0.0 x10^3/uL (0.0-0.2) Sodium Level 137 mmol/L (136-145) Potassium Level 4.1 mmol/L (3.5-5.1) Chloride Level 101 mmol/L (98-107) Carbon Dioxide Level 27 mmol/L (21-32) Anion Gap 9 (6-14) Blood Urea Nitrogen 10 mg/dL (7-20) Creatinine 0.5 mg/dL (0.6-1.0) L Estimated GFR (Cockcroft-Gault) 139.6 BUN/Creatinine Ratio 20 (6-20) Glucose Level 141 mg/dL (70-99) H Calcium Level 9.8 mg/dL (8.5-10.1) Magnesium Level 1.6 mg/dL (1.8-2.4) L Total Bilirubin 0.3 mg/dL (0.2-1.0) Aspartate Amino Transferase (AST) 25 U/L (15-37) Alanine Aminotransferase (ALT) 39 U/L (14-59) Alkaline Phosphatase 81 U/L (46-116) Total Protein 7.6 g/dL (6.4-8.2) Albumin 3.0 g/dL (3.4-5.0) L Albumin/Globulin Ratio 0.7 (1.0-1.7) L Lipase 105 U/L (73-393) Laboratory Tests 03/10/19 03:40 Laboratory Tests 03/10/19 03:40 EKG EKG [] Radiology/Procedures Radiology/Procedures PROCEDURE: CT ABDOMEN PELVIS WO CONTRAST PQRS Compliance statement: One or more of the following individualized dose reduction techniques were utilized for this examination: 1. Automated exposure control. 2. Adjustment of the mA and/or kV according to patient size. 3. Use of iterative reconstruction technique. Indication:RIGHT FLANK PAIN; HEMATURIA TECHNIQUE: CT abdomen and pelvis without IV contrast with multiplanar reformats. COMPARISON: None FINDINGS: Limited evaluation of solid abdominal and pelvic organs due to lack of IV contrast. Heart is normal in size. No pericardial or pleural effusion. Clear lung bases. Noncontrast appearance of the liver, spleen, pancreas, adrenals within normal limits. Gallstone noted. No pericholecystic fluid or inflammatory changes. 3 mm nonobstructing stone in the right kidney. No hydronephrosis. No free pelvic fluid or ascites. No enlarged retroperitoneal or pelvic adenopathy. No bowel obstruction. Normal appendix. Uterus is present. Urinary bladder is within normal limits. No pneumoperitoneum. No suspicious bony lesion. IMPRESSION: Limited evaluation of solid abdominal and pelvic organs due to lack of IV contrast. 1. Cholelithiasis without imaging evidence of acute cholecystitis. If concern for acute cholecystitis high, please consider further evaluation with HIDA scan. 2. Nonobstructing Right renal stone. Electronically signed by: Moo Nino DO (03/10/2019 4:26 AM) [facility] Course & Med Decision Making Course & Med Decision Making 38 year old female with history of kidney stones presents to ED for right sided flank pain. Labs and imaging obtained and posted to chart. Symptomatic treatment with interval improvement. CT demonstrated kidney stone and gallstones. Urine showed gema blood. Patient stable for discharge with outpatient follow-up with PCP, independent living instructor, and GI. Discussed findings and plan with patient and family, who acknowledge understanding and agreement. Dragon Disclaimer Dragon Disclaimer This electronic medical record was generated, in whole or in part, using a voice recognition dictation system. Departure Departure Impression: Primary Impression: Flank pain Additional Impression: Cholelithiasis Disposition: 01 HOME, SELF-CARE Condition: STABLE Referrals: NO PCP (PCP) BRYANNA SCHRADER MD, DAVID F MD Patient Instructions: Cholelithiasis, [id number], Flank Pain, [id number], Kidney Stones, [id number] Scripts Hydrocodone/Apap 5-325 (NORCO 5-325 TABLET) 1 Each Tablet 1 TAB PO PRN Q6HRS PRN for PAIN, #10 TAB 0 Refills Prov: ALAYNA COWART DO 03/10/19 Ondansetron (ONDANSETRON ODT) 4 Mg Tab.rapdis 1 TAB PO PRN Q6-8HRS PRN for NAUSEA, #16 TAB Prov: ALAYNA COWART DO 03/10/19 Problem Qualifiers Additional Impression: Cholelithiasis Cholelithiasis location: gallbladder Cholecystitis presence: without cholecystitis Biliary obstruction: without biliary obstruction Qualified Codes: K80.20 - Calculus of gallbladder without cholecystitis without obstruction ALAYNA COWART DO Mar 10, 2019 03:53
[2019-03-10] MEDS ORDERED: METOCLOPRAMIDE HCL 10 MG/2 ML VIAL. IV ONE (04:00)
[2019-03-10] MEDS ORDERED: KETOROLAC 15 MG/ML VIAL. IV ONE (04:00)
[2019-03-10] MEDS ORDERED: IV NORMAL SALINE 1000ML BAG 1,000 ML IV ONE (04:00)
[2019-03-10 04:01] LABS: CALCIUM 9.8 mg/dL (8.5-10.1); CREATININE 0.5 mg/dL (0.6-1.0); GFR 139.6; POTASSIUM 4.1 mmol/L (3.5-5.1)
[2019-03-10 04:06] LABS: ALBUMIN/GLOBULIN RATIO 0.7 (1.0-1.7); MAGNESIUM 1.6 mg/dL (1.8-2.4); TOTAL BILIRUBIN 0.3 mg/dL (0.2-1.0); TOTAL PROTEIN 7.6 g/dL (6.4-8.2)
--- NOTE | 2019-03-10 04:29 | RAD ---
PQRS Compliance statement: One or more of the following individualized dose reduction techniques were utilized for this examination: 1. Automated exposure control. 2. Adjustment of the mA and/or kV according to patient size. 3. Use of iterative reconstruction technique. Indication:RIGHT FLANK PAIN; HEMATURIA TECHNIQUE: CT abdomen and pelvis without IV contrast with multiplanar reformats. COMPARISON: None FINDINGS: Limited evaluation of solid abdominal and pelvic organs due to lack of IV contrast. Heart is normal in size. No pericardial or pleural effusion. Clear lung bases. Noncontrast appearance of the liver, spleen, pancreas, adrenals within normal limits. Gallstone noted. No pericholecystic fluid or inflammatory changes. 3 mm nonobstructing stone in the right kidney. No hydronephrosis. No free pelvic fluid or ascites. No enlarged retroperitoneal or pelvic adenopathy. No bowel obstruction. Normal appendix. Uterus is present. Urinary bladder is within normal limits. No pneumoperitoneum. No suspicious bony lesion. IMPRESSION: Limited evaluation of solid abdominal and pelvic organs due to lack of IV contrast. 1. Cholelithiasis without imaging evidence of acute cholecystitis. If concern for acute cholecystitis high, please consider further evaluation with HIDA scan. 2. Nonobstructing Right renal stone. Electronically signed by: Moo Nino DO (03/10/2019 4:26 AM) [facility]
[2019-03-10] MEDS ORDERED: ONDA4TAB12 PO (04:38)
[2019-03-10] MEDS ORDERED: HYDR-3164 PO (04:38)
== END 2019-03-10 05:05 | disposition home or self-care (01) ==
LOC: ER 03:16
DX: K80.20 Calculus of gallbladder without cholecystitis without obstruction (principal); M54.9 Dorsalgia, unspecified; Z87.442 Personal history of urinary calculi; Z98.890 Other specified postprocedural states
CPT/HCPCS: 36415; 74176; 80053; 81001; 81025; 83690; 83735; 85025; 87086; 96374; 96375; 99285; J1885; J2765; J7030; 87186

== ENCOUNTER 2019-08-11 17:48 | Emergency (ER) | payer SELFPAY ==
[~2019-08-11] VITALS: Ht 165.1 cm; Wt 73.5 kg
[~2019-08-11 17:48] MED LIST changes: +ONDA4TAB12 PO
[2019-08-11 18:12] VITALS: BP 159/100
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
[2019-08-11] MEDS ORDERED: CYCL10TA2 PO (19:55)
[2019-08-11] MEDS ORDERED: METH4TAB2 PO (19:55)
[2019-08-11] MEDS ORDERED: NAPR-514 PO (19:55)
--- NOTE | 2019-08-11 21:05 | RAD ---
Exam: Left hand 3 views INDICATION: Injury TECHNIQUE: Frontal, lateral and oblique views of the left hand Comparisons: None FINDINGS: Bone mineralization is normal. No acute or healed fractures. Soft tissues are unremarkable. Joint spaces are well-maintained. IMPRESSION: No acute osseous abnormality. Electronically signed by: Memo Vera MD (08/11/2019 9:02 PM) [facility]
== END 2019-08-11 19:59 | disposition home or self-care (01) ==
LOC: ER 17:48
DX: S13.8XXA Sprain of joints and ligaments of other parts of neck, initial encounter (principal); S00.83XA Contusion of other part of head, initial encounter; J06.9 Acute upper respiratory infection, unspecified; M25.542 Pain in joints of left hand; Z98.890 Other specified postprocedural states; Z87.442 Personal history of urinary calculi; V43.52XA Car driver injured in collision with other type car in traffic accident, initial encounter; Y93.89 Activity, other specified; Y92.410 Unspecified street and highway as the place of occurrence of the external cause; Y99.8 Other external cause status
CPT/HCPCS: 70450; 72125; 73130; 99284

== ENCOUNTER → 2021-03-01 | Outpatient (CLI) | payer OTHER ==
[~2021-03-01] MED LIST changes: +CYCL10TA2 PO; +METH4TAB2 PO; +NAPR-514 PO
--- NOTE | 2021-03-01 09:59 | RAD ---
EXAM: Abdomen and pelvis CT without intravenous contrast. HISTORY: Flank pain. TECHNIQUE: Computed tomographic images of the abdomen and pelvis were obtained without contrast. Mult iplanar reformatting was performed. *One or more of the following individualized dose reduction techniques were utilized for this examina tion: 1. Automated exposure control. 2. Adjustment of the mA and/or kV according to patient size. 3. Use of iterative reconstruction technique. COMPARISON: 03/10/2019. FINDINGS: Evaluation of the lower thorax is unremarkable. The gallbladder is surgically absent. The p ancreas, spleen and adrenal glands are unremarkable. There nonobstructing right renal stones, the lar gest which measures 4 mm within the upper pole. There is a slightly prominent right renal collecting system. There are calcifications along the course of the right ureter which appears to be extralumina l. No convincing obstructing ureteral stone is seen. There is right renal cortical lobulation likely due to scarring. There is no appendicitis. There is no bowel obstruction. The bladder is unremarkable. There is a smal l calcification along the medial aspect of the left ovary, likely of no clinical significance. There is no lymphadenopathy. The aorta is normal in caliber. There is no suspicious osseous lesion. There i s degenerative change involving the lumbar spine. IMPRESSION: Right nephrolithiasis. There is a prominent right renal collecting system suggesting mil d hydronephrosis. No convincing obstructing ureteral stone is seen. The possibility of recent stone p assage is not excluded. Correlate with urinalysis. Electronically signed by: Jenae Freire MD (03/01/2021 9:56 AM) [id number]
== END ==
LOC: CT 09:30
PROVIDERS: ATTEND Nurse Practitioner Primary Care
DX: N20.0 Calculus of kidney (principal); Z87.442 Personal history of urinary calculi
CPT/HCPCS: 74176